=== PATIENT | male | born 1975 | race Caucasian/White ===

== ENCOUNTER 2017-11-26 01:13 | Emergency (ER) | END 2017-11-26 03:46 | disposition home or self-care (01) ==

== ENCOUNTER 2018-01-25 21:16 | Emergency (ER) | END 2018-01-25 23:00 | disposition left against medical advice (07) ==

== ENCOUNTER 2018-07-02 12:58 | Emergency (ER) | payer MEDICARE, MEDICAID ==
[~2018-07-02] VITALS: Ht 175.3 cm; Wt 89.0 kg
[~2018-07-02 12:58] MED LIST: CYCL10TA7 PO; HYDR-4011 PO; IBUP-1542 PO
[2018-07-02] MEDS ORDERED: OLANZAPINE (ODT) 5 MG TAB ODT STA (13:14)
[2018-07-02] MEDS ORDERED: LORAZEPAM 1 MG TAB PO ONE (13:30)
--- NOTE | 2018-07-02 13:39 | ERD ---
ER Documentation Chief Complaint Chief Complaint Psychosis HPI 42-year-old male history of bipolar disorder, paranoid schizophrenia who states that he is off his medications who presented to the clinic with acute psychosis. The police were called to escort the patient to the emergency room. The patient denies any suicidal ideation but has flight of ideas. He is asking for medications to help with the voices. The remainder of HPI is very limited. ROS All systems reviewed and are negative except as per history of present illness. Medications Home Meds Active Scripts Hydrocodone/Acetaminophen ([place] 5-325 Tablet) 1 Each Tablet, 1 TAB PO Q6H PRN for PAIN, #5 TAB Prov:DANIEL WYNN ASSISTANT [employer]NAGER 11/26/17 Cyclobenzaprine Hcl* (Cyclobenzaprine Hcl*) 10 Mg Tablet, 10 MG PO TID, #15 TAB Prov:DANIEL WYNN. ASSISTANT REAL ESTATE MANAGER 11/26/17 Ibuprofen* (Motrin*) 600 Mg Tab, 600 MG PO Q6H PRN for PAIN AND OR ELEVATED TEMP, #30 TAB Prov:DANIEL WYNN ASSISTANT REAL ESTATE MANAGER 11/26/17 Allergies Allergies: Coded Allergies: No Known Allergy (Unverified , 11/26/17) PMhx/Soc Anesthesia Reaction: No Hx Neurological Disorder: No Hx Respiratory Disorders: No Hx Cardiac Disorders: No Hx Psychiatric Problems: Yes (BIPOLAR, PARANOID SCHOZOPHRENIA) Hx Miscellaneous Medical Probl: Yes (chronic low back pain) Hx Alcohol Use: Yes Hx Substance Use: Yes (marijuana, METH) Hx Tobacco Use: Yes Smoking Status: Current every day smoker FmHx Family History: No diabetes Physical Exam Vitals Vital Signs Date Temp Pulse Resp B/P (MAP) Pulse Ox O2 O2 Flow FiO2 Time Delivery Rate 07/02/18 98.8 68 20 99/51 (67) 99 14:24 Physical Exam General: Disheveled, agitated Head: Normocephalic, atraumatic. Eyes: Pupils equally reactive, EOM intact ENT: Moist mucous membranes Neck: Supple, no lymphadenopathy Respiratory: Lungs clear bilaterally, no distress Cardiovascular: RRR, no murmurs, rubs, or gallops Abdominal: Soft, non-tender, non-distended, no peritoneal signs : Deferred MSK: No edema, no unilateral swelling, 5/5 strength Neurologic: Alert and oriented, moving all extremities, normal speech, no focal weakness, no cerebellar signs Skin: No rash Psych: Speaking and flight of ideas, poor insight, auditory hallucinations, denies SI or HI Result Diagram: 07/02/18 1326 07/02/18 1326 Results 24 hrs Laboratory Tests Test 07/02/18 13:26 White Blood Count 6.6 10^3/ul Red Blood Count 3.85 10^6/ul Hemoglobin 12.4 g/dl Hematocrit 37.5 % Mean Corpuscular Volume 97.4 fl Mean Corpuscular Hemoglobin 32.2 pg Mean Corpuscular Hemoglobin Concent 33.1 g/dl Red Cell Distribution Width 14.1 % Platelet Count 393 10^3/UL Mean Platelet Volume 8.8 fl Immature Granulocytes % 0.300 % Neutrophils % 52.8 % Lymphocytes % 32.3 % Monocytes % 11.4 % Eosinophils % 2.3 % Basophils % 0.9 % Nucleated Red Blood Cells % 0.0 /100WBC Immature Granulocytes # 0.020 10^3/ul Neutrophils # 3.5 10^3/ul Lymphocytes # 2.1 10^3/ul Monocytes # 0.8 10^3/ul Eosinophils # 0.2 10^3/ul Basophils # 0.1 10^3/ul Nucleated Red Blood Cells # 0.0 10^3/ul Sodium Level 145 mmol/L Potassium Level 4.4 mmol/L Chloride Level 104 mmol/L Carbon Dioxide Level 29 mmol/L Anion Gap 12 Blood Urea Nitrogen 17 mg/dl Creatinine 0.66 mg/dl Est Glomerular Filtrat Rate mL/min > 60 mL/min Glucose Level 82 mg/dl Calcium Level 9.8 mg/dl Total Bilirubin 0.1 mg/dl Direct Bilirubin 0.00 mg/dl Indirect Bilirubin 0.1 mg/dl Aspartate Amino Transf (AST/SGOT) 42 IU/L Alanine Aminotransferase (ALT/SGPT) 39 IU/L Alkaline Phosphatase 91 IU/L Total Protein 7.8 g/dl Albumin 4.7 g/dl Globulin 3.10 g/dl Albumin/Globulin Ratio 1.51 Ethyl Alcohol Level < 10.0 mg/dl Current Medications Medications Dose Sig/Mar[place] Start Time Status Last (Trade) Ordered Route PRN Stop Time Admin Dose Reason Admin Olanzapine 10 mg ONCE STAT 07/02/18 DC 07/02/18 (Zyprexa ODT 13:14 13:21 Zydis) 07/02/18 13:16 Lorazepam 1 mg ONCE ONCE 07/02/18 DC 07/02/18 (Ativan) PO 13:30 13:21 07/02/18 13:31 Procedures/MDM EKG/DIAGNOSTIC IMAGING: [None Required] LAB INTERPRETATION: [No acute process] MEDICAL DECISION MAKING: The patient's presentation is consistent with underlying psychiatric illness and likely exacerbation of this illness and/or psychosis. This is likely confounded secondary to methamphetamine abuse. Patient requires medication to help with acute agitation and acute psychosis. I have a much lower clinical concern for delirium or acute organic pathology such as toxicologic, metabolic, ischemic, intracranial hemorrhage, infectious process. However, we must rule this out prior to relying a diagnosis of und erlying psychiatric illness. The patient's workup will include medical screening examination and appropriate laboratory testing. If the patient's medical examination does not reveal acute organic pathology the patient will be medically cleared for psychiatric evaluation. ER COURSE: * The patient was given oral Zyprexa and Ativan * Patient stabilizing * The patient's evaluation does not suggest an acute organic pathology. At this time I believe the patient's presentation is very consistent with underlying psychiatric illness. The patient is medically cleared for psychiatric evaluation. CONSULTATION: Psychiatric consultation: Telemetry medicine psychiatry has been consulted on this case to evaluate the patient for possible acute psychiatric illness that would require inpatient hospitalization. Recommendation Imp: 42 yo male gravely disabled 5150 psych admitFor moderate agitation Zyprexa 5mg po prn For severe agitation chlorpromazine 25mg im prn DISPOSITION PLAN: Pending hold and placement Departure Diagnosis: Primary Impression: Acute psychosis Additional Impressions: Noncompliance with medication regimen Polysubstance abuse Condition: Stable LINNETTE MALCOLM MD Jul 02, 2018 13:39
[2018-07-02 14:24] VITALS: Ht 175.3 cm; Wt 89.0 kg
--- NOTE | 2018-07-02 15:04 | PSY ---
Date/Time of Note Date/Time of Note DATE: 07/02/18 TIME: 18:01 Psychiatric Subjective Eval Consent Pt consented to telemedicine: Yes Subjective Evaluation Patient location: emergency Chief Complaint: biba with [employer] from clinic, psychotic episode and SI History of present illness 42 yo male with ho psychosis, bib 911 from a clinical where he was very di sorganized, agitated, and reporting si. spoke with pt. He was severely disorganized. Too disorganized to answer any questions includign about si. Past Psych Hx: unable to obtain due to disorganization PMHx: unable to obtain due to disorganization Meds: unable to obtain due to disorganization Allergies: unable to obtain due to disorganization MSE: disheveled, somewhat agitated, very disorganized, completey incoherent unable to obtain answers to questions Imp: 42 yo male gravely disabled 5150 psych admitFor moderate agitation Zyprexa 5mg po prn For severe agitation chlorpromazine 25mg im prn utox Medical history Problems Medical Problems: (1) Back pain Status: Acute (2) Patient left after triage Status: Acute Allergies: Coded Allergies: No Known Allergy (Unverified , 11/26/17) Psychiatric Objective Eval Mental Status Examination: Laboratory Results Laboratory Tests Test 07/02/18 13:26 White Blood Count 6.6 10^3/ul Red Blood Count 3.85 10^6/ul Hemoglobin 12.4 g/dl Hematocrit 37.5 % Mean Corpuscular Volume 97.4 fl Mean Corpuscular Hemoglobin 32.2 pg Mean Corpuscular Hemoglobin Concent 33.1 g/dl Red Cell Distribution Width 14.1 % Platelet Count 393 10^3/UL Mean Platelet Volume 8.8 fl Immature Granulocytes % 0.300 % Neutrophils % 52.8 % Lymphocytes % 32.3 % Monocytes % 11.4 % Eosinophils % 2.3 % Basophils % 0.9 % Nucleated Red Blood Cells % 0.0 /100WBC Immature Granulocytes # 0.020 10^3/ul Neutrophils # 3.5 10^3/ul Lymphocytes # 2.1 10^3/ul Monocytes # 0.8 10^3/ul Eosinophils # 0.2 10^3/ul Basophils # 0.1 10^3/ul Nucleated Red Blood Cells # 0.0 10^3/ul Sodium Level 145 mmol/L Potassium Level 4.4 mmol/L Chloride Level 104 mmol/L Carbon Dioxide Level 29 mmol/L Anion Gap 12 Blood Urea Nitrogen 17 mg/dl Creatinine 0.66 mg/dl Est Glomerular Filtrat Rate mL/min > 60 mL/min Glucose Level 82 mg/dl Calcium Level 9.8 mg/dl Total Bilirubin 0.1 mg/dl Direct Bilirubin 0.00 mg/dl Indirect Bilirubin 0.1 mg/dl Aspartate Amino Transf (AST/SGOT) 42 IU/L Alanine Aminotransferase (ALT/SGPT) 39 IU/L Alkaline Phosphatase 91 IU/L Total Protein 7.8 g/dl Albumin 4.7 g/dl Globulin 3.10 g/dl Albumin/Globulin Ratio 1.51 Ethyl Alcohol Level < 10.0 mg/dl Assessment and Plan Recommendation/Plan Multiple antipsychotics: No Discharge Disposition: Psychiatric inpatient Legal Status: Place involuntary hold PAMWILLWillis Jul 02, 2018 15:04
[2018-07-02] MEDS ORDERED: MIDAZOLAM 1 MG/ML 2 ML INJ IM ONE (20:30)
[2018-07-03 01:40] VITALS: BP 110/63; PULSE 63; RESP 20
== END 2018-07-03 02:00 ==
LOC: E/R 12:58
DX: F29 Unspecified psychosis not due to a substance or known physiological condition (principal); F15.10 Other stimulant abuse, uncomplicated; F12.10 Cannabis abuse, uncomplicated; F17.210 Nicotine dependence, cigarettes, uncomplicated; R40.2142 Coma scale, eyes open, spontaneous, at arrival to emergency department; R40.2232 Coma scale, best verbal response, inappropriate words, at arrival to emergency department; R40.2362 Coma scale, best motor response, obeys commands, at arrival to emergency department; Z91.19 Patient's noncompliance with other medical treatment and regimen
CPT/HCPCS: 80053; 80307; 85025; 96372; 99285; J2250